=== PATIENT | male | born 1965 | race Caucasian/White ===

== ENCOUNTER 2016-12-26 13:26 | Observation (INO) | payer BC ==
[~2016-12-26] VITALS: Ht 167.6 cm; Wt 127.0 kg
[~2016-12-26 13:26] MED LIST: ASPIRIN E.C.81 M1 PO; Antivert PO; D-VERT25 MG PO; EXCEDRIN1 TABLET PO; HCTZ; HYDROCHLOROTHIA25 MG PO; Hydrodiuril,Oretic,E PO; IBUPROFEN; PRINIVIL20 MG PO; Xanax PO; ZITHROMAX250 MG PO; Zithromax PO
[2016-12-26 14:16] LABS: BASOPHIL COUNT 0.1 K/uL (0-0.1); EOSINOPHIL (%) 0.3 % (0-5); HEMATOCRIT 44.4 % (38.0-50.0); IMMATURE GRANULOCYTE (%) 0.7 % (0.0-0.7); IMMATURE GRANULOCYTE COUNT 0.1 K/uL; INSTRUMENT ABS NEUTROPHIL CT 10.5 K/uL; LYMPHOCYTE COUNT 2.2 K/uL (1.0-2.8); MCH 32.2 PG (29.0-34.0); MCV 94.7 FL (86-99); MEAN PLAT.VOLUME 10.4 uM^3 (9.0-12.4); MONOCYTE (%) 5.8 % (3-12); MONOCYTE COUNT 0.8 K/uL (0-0.8); NEUTROPHIL (%) 76.8 % (45-76); NEUTROPHIL COUNT 10.5 K/uL (1.8-6.4); PLATELET COUNT 274 K/uL (156-360); RBC DIS.WIDTH-CV 12.5 % (11.8-14.6); RBC DIS.WIDTH-SD 42.9 % (39-53); RED BLOOD COUNT 4.69 M/uL (4.00-5.50); WHITE BLOOD COUNT 13.7 K/uL (4.1-10.2)
[2016-12-26 14:27] LABS: CHLORIDE 102 mEq/L (99-109); POTASSIUM 3.4 mEq/L (3.7-5.4); SODIUM 143 mEq/L (136-147)
[2016-12-26 14:29] LABS: GLUCOSE 125 mg/dL (70-99)
[2016-12-26 14:31] LABS: ANION GAP 14 MEQ/L (2-14)
[2016-12-26 14:33] LABS: GFR ESTIMATE (CALCULATED) > 59 mL/min/
[2016-12-26 14:34] LABS: UREA NITROGEN (BUN) 17 mg/dL (9-23)
[2016-12-26 14:37] LABS: TROP-I INTERPRETATION NEGATIVE; TROPONIN-I < 0.01 ng/mL (0.0-0.30)
[2016-12-26 14:59] LABS: INTER. NORMALIZED RATIO 1.1; PROTHROMBIN TIME 11.9 SEC (10.2-12.9)
[2016-12-26 15:01] LABS: PTT 34.1 SEC (25-37)
[2016-12-26] MEDS ORDERED: LISINOPRIL40 MG PO (16:34)
[2016-12-26] MEDS ORDERED: LOW DOSE ASPIRI81 M1 PO (16:34)
[2016-12-26] MEDS ORDERED: DYAZIDE, MA1 CAPSULE PO (16:35)
[2016-12-26] MEDS ORDERED: NEXIUM20 MG PO (16:35)
[2016-12-26] MEDS ORDERED: FLONASE16 G1 BOTH NARES (16:35)
[2016-12-26] MEDS ORDERED: PANTOPRAZOLE SO20 MG PO (16:36)
[2016-12-26] MEDS ORDERED: SINGULAIR10 MG PO (16:36)
[2016-12-26] MEDS ORDERED: SYNALAR 0.025%15 GM TP (16:37)
[2016-12-26 18:08] VITALS: BP 139/84
[2016-12-26 18:39] LABS: HDL CHOLESTEROL 46 MG/DL (Desirable>=40); LDL CHOLESTEROL 113 mg/dL (Desirable<100); MAGNESIUM 1.9 mg/dl (1.3-2.7); NON-HDL CHOLESTEROL 137 mg/dL (Desirable<160); TOTAL CHOLESTEROL 183 mg/dL (Desirable<200); TRIGLYCERIDES 120 MG/DL (Normal: <150)
[2016-12-26 18:47] LABS: TROP-I INTERPRETATION NEGATIVE; TROPONIN-I 0.02 ng/mL (0.0-0.30)
[2016-12-26 19:15] VITALS: BP 130/68
[2016-12-26 23:45] VITALS: BP 117/58
[2016-12-27 01:01] LABS: TROP-I INTERPRETATION NEGATIVE; TROPONIN-I < 0.01 ng/mL (0.0-0.30)
[2016-12-27 04:15] VITALS: BP 96/52
[2016-12-27 05:13] LABS: D-DIMER ELISA < 150.00 ng/mLDDU (<230)
[2016-12-27 05:57] LABS: ANION GAP 10 MEQ/L (2-14); CHLORIDE 102 MEQ/L (99-109); GFR ESTIMATE (CALCULATED) > 59 mL/min/; GLUCOSE 107 mg/dL (70-99); POTASSIUM 3.9 MEQ/L (3.7-5.4); SAMPLE HEMOLYSIS CHECK 0; SAMPLE ICTERIC CHECK 0; SAMPLE LIPEMIA CHECK 0; SODIUM 140 MEQ/L (136-147); UREA NITROGEN (BUN) 20 mg/dL (9-23)
[2016-12-27 07:57] LABS: Estimated Average Glucose 117 mg/dL (70-123); HEMOGLOBIN A1c (GLYCOHEMOGLOB) 5.7 % HGB (Below 5.7)
[2016-12-27] MEDS ORDERED: CARDIZEM CD240 MG PO (11:34)
[2016-12-27] MEDS ORDERED: VENTOLIN HFA18 GM IH (11:35)
[2016-12-27 11:44] VITALS: BP 142/70
== END 2016-12-27 15:00 | disposition home or self-care (01) ==
LOC: EME 13:26 → 4EAST 16:33 → EDOF 16:33 → 4EAST 16:33 → ENRESERV 16:36 → 4EAST 17:25
PROVIDERS: Emergency Medicine; Hospitalist; Internal Medicine Cardiovascular Disease
DX: I48.92 Unspecified atrial flutter (principal); I48.0 Paroxysmal atrial fibrillation; I10 Essential (primary) hypertension; Q24.0 Dextrocardia; J45.909 Unspecified asthma, uncomplicated; E66.9 Obesity, unspecified; E87.6 Hypokalemia; Z82.49 Family history of ischemic heart disease and other diseases of the circulatory system; Z83.3 Family history of diabetes mellitus; Z79.82 Long term (current) use of aspirin; Z88.8 Allergy status to other drugs, medicaments and biological substances
CPT/HCPCS: 71010; 80048; 80061; 83036; 83735; 84443; 84484; 85025; 85379; 85610; 85730; 93005; 94640; 99202; 99281; 99285; G0378; J7050

== ENCOUNTER 2017-01-01 18:36 | Emergency (ER) | payer BC ==
[~2017-01-01] VITALS: Ht 167.6 cm; Wt 127.6 kg
[~2017-01-01 18:36] MED LIST changes: +CARDIZEM CD240 MG PO; +DYAZIDE, MA1 CAPSULE PO; +FLONASE16 G1 BOTH NARES; +LISINOPRIL40 MG PO; +LOW DOSE ASPIRI81 M1 PO; +NEXIUM20 MG PO; +PANTOPRAZOLE SO20 MG PO; +SINGULAIR10 MG PO; +SYNALAR 0.025%15 GM TP; +VENTOLIN HFA18 GM IH
[2017-01-01 19:37] LABS: HEMATOCRIT 44.1 % (38.0-50.0); MCH 32.4 PG (29.0-34.0); MCHC 34.2 G/DL (30.0-36.0); MCV 94.6 FL (86-99); MEAN PLAT.VOLUME 10.3 uM^3 (9.0-12.4); PLATELET COUNT 235 K/uL (156-360); RBC DIS.WIDTH-CV 12.5 % (11.8-14.6); RED BLOOD COUNT 4.66 M/uL (4.00-5.50)
[2017-01-01 19:46] LABS: CHLORIDE 105 mEq/L (99-109); POTASSIUM 3.2 mEq/L (3.7-5.4); SODIUM 141 mEq/L (136-147)
[2017-01-01 19:48] LABS: GLUCOSE 175 mg/dL (70-99)
[2017-01-01 19:49] LABS: ANION GAP 13 MEQ/L (2-14)
[2017-01-01 19:51] LABS: GFR ESTIMATE (CALCULATED) > 59 mL/min/
[2017-01-01 19:52] LABS: UREA NITROGEN (BUN) 17 mg/dL (9-23)
[2017-01-01 20:00] LABS: TROP-I INTERPRETATION NEGATIVE; TROPONIN-I < 0.01 ng/mL (0.0-0.30)
[2017-01-01] MEDS ORDERED: TESSALON PERLE100 MG PO (21:55)
[2017-01-01 22:03] VITALS: BP 170/107
== END 2017-01-01 22:00 | disposition home or self-care (01) ==
LOC: EME 18:36
DX: R00.2 Palpitations (principal); I10 Essential (primary) hypertension; J42 Unspecified chronic bronchitis; J45.909 Unspecified asthma, uncomplicated; K21.9 Gastro-esophageal reflux disease without esophagitis; Z79.82 Long term (current) use of aspirin
CPT/HCPCS: 71020; 80048; 83880; 84484; 85027; 93005; 99281; 99285; J7030

== ENCOUNTER 2017-10-14 09:17 | Emergency (ER) | payer OTHER ==
[~2017-10-14] VITALS: Ht 167.6 cm; Wt 132.8 kg
[~2017-10-14 09:17] MED LIST changes: +TESSALON PERLE100 MG PO
[2017-10-14 10:44] LABS: BASOPHIL (%) 0.3 % (0-1); EOSINOPHIL (%) 0.8 % (0-5); EOSINOPHIL COUNT 0.1 K/uL (0-0.3); HEMATOCRIT 42.2 % (38.0-50.0); HEMOGLOBIN 14.4 G/DL (12.5-16.6); LYMPHOCYTE (%) 22.3 % (15-42); MCH 33.2 PG (29.0-34.0); MCHC 34.1 G/DL (30.0-36.0); MCV 97.2 FL (86-99); MONOCYTE (%) 8.4 % (3-12); MONOCYTE COUNT 1.1 K/uL (0-0.8); NEUTROPHIL (%) 67.2 % (45-76); NEUTROPHIL COUNT 8.9 K/uL (1.8-6.4); PLATELET COUNT 230 K/uL (156-360); RBC DIS.WIDTH-CV 13.2 % (11.8-14.6); RBC DIS.WIDTH-SD 47.5 % (39-53); RED BLOOD COUNT 4.34 M/uL (4.00-5.50); WHITE BLOOD COUNT 13.3 K/uL (4.1-10.2)
[2017-10-14 10:58] LABS: CHLORIDE 102 mEq/L (99-109); SODIUM 142 mEq/L (136-147)
[2017-10-14 11:00] LABS: GLUCOSE 181 mg/dL (70-99)
[2017-10-14 11:02] LABS: APPEARANCE CLEAR ((CLEAR)); BILIRUBIN NEGATIVE; BLOOD NEGATIVE; COLOR STRAW ((YELLOW)); GLUCOSE (STRIP) 50; KETONES NEGATIVE; LEUKOCYTES NEGATIVE; NITRITE NEGATIVE; PROTEIN (STRIP) NEGATIVE; SPECIFIC GRAVITY 1.016 (1.000-1.030); UROBILINOGEN 0.2 MG/DL (0.2-1.0)
[2017-10-14 11:03] LABS: TROP-I INTERPRETATION NEGATIVE; TROPONIN-I 0.02 ng/mL (0.0-0.30)
[2017-10-14 11:04] LABS: GFR ESTIMATE (CALCULATED) > 59 mL/min/ (58.99-99999)
[2017-10-14 11:05] LABS: UREA NITROGEN (BUN) 18 mg/dL (9-23)
[2017-10-14] MEDS ORDERED: XANAX0.5 MG PO (11:56)
[2017-10-14 12:01] VITALS: BP 160/79
== END 2017-10-14 12:03 | disposition home or self-care (01) ==
LOC: EME 09:17
PROVIDERS: Emergency Medicine
DX: F41.9 Anxiety disorder, unspecified (principal); I48.91 Unspecified atrial fibrillation; Q24.0 Dextrocardia; I10 Essential (primary) hypertension; K21.9 Gastro-esophageal reflux disease without esophagitis; J45.909 Unspecified asthma, uncomplicated; F32.9 Major depressive disorder, single episode, unspecified; Q89.3 Situs inversus; Z79.82 Long term (current) use of aspirin; Z90.2 Acquired absence of lung [part of]; Z88.8 Allergy status to other drugs, medicaments and biological substances
CPT/HCPCS: 71045; 80048; 81003; 83880; 84484; 85025; 93005; 99281; 99284